=== PATIENT | male | born 1980 | race Caucasian/White ===

== ENCOUNTER 2023-01-21 07:10 | Outpatient (CLI) | payer OTHER ==
--- NOTE | 2023-01-21 11:44 | MRI Report ---
PROCEDURE: KNEE WO - RT INDICATIONS: INJURY TO RIGHT LOWER LEG TECHNIQUE: Noncontrast sagittal PD fast spin echo and T2 fast spin echo with fat saturation, sagittal 3-D spoile d GE with fat saturation; coronal T1 spin echo and PD fast spin echo with fat saturation, and axial P D fast spin echo with fat saturation through the knee. COMPARISON: None. FINDINGS: Image quality: Excellent. Anterior cruciate ligament: Intact. Posterior cruciate ligament: Intact. Medial collateral ligament: Intact. Lateral collateral ligament: Intact. Medial meniscus: Intact. Lateral meniscus: Intact. Medial and lateral tendons: The semimembranosus tendon insertions appear intact. Visualized portion s of the pes anserinus tendons appear normal. The popliteus tendon appears intact. Iliotibial band appears normal. Anterior structures: Borderline patella ismael. The distal quadriceps tendon is intact. No patellar dooley bluxation. No femoral trochlear dysplasia or ventral trochlear prominence. Mild edema at the superol ateral aspect of the infrapatellar fat pad is nonspecific but can be seen in the setting of lateral f emoral condyle-patellar tendon friction syndrome. Bones: Nondisplaced comminuted fracture is seen within the fibular head extending to the proximal ti biofibular articulation with surrounding osseous edema. [id number] signal is also seen in the p osterolateral aspect of the lateral tibial plateau with questionable incomplete fracture line. No ext ension to the lateral tibial plateau articular surface is seen. Nonspecific focus of metal artifact i s seen at the anterolateral aspect of the knee at the level of the tibial plateau, possibly related t o debris on the skin surface. Medial femorotibial cartilage: Focal high-grade cartilage delamination at the far posterior nonuprig ht weightbearing portion of the medial femoral condyle measuring approximately 4 x 5 mm with focal dooley bchondral cystic changes. There is mild partial thickness cartilage thinning in the weightbearing por tion of the medial compartment. Lateral femorotibial cartilage: No focal cartilage defect. Patellofemoral cartilage: Deep cartilage fissuring at the medial and lateral patellar facets and the lateral femoral trochlea. Soft tissues: There is a small joint effusion. There is a small medial popliteal cyst. The musculat ure surrounding the knee is normal in bulk. Soft tissue edema is seen in the musculature surrounding the fibular head fracture. IMPRESSION: 1.Nondisplaced comminuted intra-articular fracture of the fibular head with surrounding osseous and s oft tissue edema. 2.Moderate trabecular bone injury at the posterolateral aspect of the lateral tibial plateau with que stionable nondisplaced fracture line. No extension to the lateral tibial plateau articular surface is seen. 3.Focal high-grade cartilage fissuring and delamination at the far posterior aspect of the medial fem oral condyle measuring 4 x 5 mm with subchondral cystic changes. There is background mild callus thin krista in the weightbearing portion of the medial compartment as well as deep cartilage fissuring in th e anterior compartment. 4.Borderline patella ismael. Mild edema at the superolateral aspect of the infrapatellar fat pad can be seen in the setting of lateral femoral condyle-patellar tendon friction syndrome. 5.Small joint effusion. Small medial popliteal cyst. Reviewed by: Santo Huertas MD on 01/21/2023 11:43 AM PDT Approved by: Santo Huertas MD on 01/21/2023 11:43 AM PDT Station ID: [id number]
== END 2023-01-21 07:11 | disposition home or self-care (01) ==
LOC: DI 07:10
PROVIDERS: ATTEND Physician Assistant
DX: S82.831A Other fracture of upper and lower end of right fibula, initial encounter for closed fracture (principal); S89.91XA Unspecified injury of right lower leg, initial encounter; M25.461 Effusion, right knee; M71.21 Synovial cyst of popliteal space [Baker], right knee; M23.91 Unspecified internal derangement of right knee